=== PATIENT | female | born 1985 | race Caucasian/White ===

== ENCOUNTER 2019-05-17 14:50 | Outpatient (CLI) | payer BC | END 2019-05-17 14:51 | disposition home or self-care (01) | LOC: CTENTCT 14:50 | PROVIDERS: ATTEND Otolaryngology Plastic Surgery within the Head & Neck | DX: J32.9 Chronic sinusitis, unspecified (principal) | CPT/HCPCS: 70486 ==

== ENCOUNTER 2023-09-25 09:19 | Outpatient (CLI) | payer BC | END 2023-09-25 09:20 | disposition home or self-care (01) | LOC: BICMAMMO 09:19 | PROVIDERS: ATTEND Family Medicine | DX: N63.10 Unspecified lump in the right breast, unspecified quadrant (principal) | CPT/HCPCS: 77066; G0279 ==